=== PATIENT | female | born 1985 | race Caucasian/White ===

== ENCOUNTER 2022-04-24 07:01 | Emergency (ER) | payer MEDICAID ==
[~2022-04-24] VITALS: Ht 167.6 cm; Wt 56.7 kg
[2022-04-24 07:36] VITALS: BP 128/77
[2022-04-24] MEDS ORDERED: DEXAMETHASONE SOD PHOSPHATE 10 MG/ML VIAL IM ONE (08:00)
[2022-04-24] MEDS ORDERED: KETOROLAC TROMETHAMINE INJ 30 MG/ML VIAL IM ONE (08:00)
[2022-04-24] MEDS ORDERED: IBUP-1955 PO (08:29)
[2022-04-24] MEDS ORDERED: AMOX-430 PO (08:29)
[2022-04-24] MEDS ORDERED: DEXAMETHASONE SOD PHOSPHATE 10 MG/ML VIAL ONE (08:37)
[2022-04-24] MEDS ORDERED: KETOROLAC TROMETHAMINE 15 MG/ML VIAL ONE (08:37)
--- NOTE | 2022-04-24 08:50 | NUR ---
COVID PCR SWAB AND STREP SWAB DONE AND SENT TO LAB
--- NOTE | 2022-04-24 09:01 | NUR ---
Patient discharged to home in stable condition. Written and verbal after care instructions given. Patient verbalizes understanding of instruction.
== END 2022-04-24 09:01 | disposition home or self-care (01) ==
LOC: ER 07:04
DX: J02.9 Acute pharyngitis, unspecified (principal); Z20.822 Contact with and (suspected) exposure to COVID-19; Z87.820 Personal history of traumatic brain injury; F17.200 Nicotine dependence, unspecified, uncomplicated
CPT/HCPCS: 99283; 96372; 84703; U0003; J1100; C9803; J1885